=== PATIENT | female | born 1995 | race Caucasian/White ===

== ENCOUNTER 2016-10-10 12:12 | Emergency (ER) | payer OTHER ==
[~2016-10-10] VITALS: Ht 162.6 cm; Wt 55.7 kg
[2016-10-10 12:14] VITALS: TEMP 36.8; Ht 162.6 cm; Wt 55.7 kg
[2016-10-10] MEDS ORDERED: SODIUM CHLORIDE 0.9% 1000ML 1,000 ML IV SCH (13:14)
[2016-10-10 13:16] LABS: BASO ABS # 0.06 K/uL (0-0.2); COMPLETE YES; HEMATOCRIT 39.2 % (37-47); IG% 0.3 %; LYMPH % 30.6 %; LYMPH ABS # 1.92 K/uL (1.2-3.4); MEAN CORPUSCULAR HEMOGLOBIN 29.4 pg (25-34); MEAN CORPUSCULAR HGB CONC 34.2 g/dl (32-36); MEAN PLATELET VOLUME 9.7 fL (7.4-10.4); MONO % 8.5 %; NEUT % 55.6 %; PLATELET COUNT 206 K/uL (130-400); RED BLOOD COUNT 4.56 M/uL (4.2-5.4); WHITE BLOOD COUNT 6.27 K/uL (4.8-10.8)
[2016-10-10 13:42] LABS: ALT/SGPT 40 U/L (12-78); BLOOD UREA NITROGEN 13 mg/dl (7-18); BUN/CREATININE RATIO 16.9 (10-20); CALCIUM 9.1 mg/dl (8.5-10.1); CARBON DIOXIDE 26 mmol/L (21-32); CHLORIDE 107 mmol/L (98-107); CREATININE 0.77 mg/dl (0.60-1.20); GLUCOSE 79 mg/dl (70-99); POTASSIUM 3.8 mmol/L (3.5-5.1); SODIUM 140 mmol/L (136-145)
[2016-10-10 13:43] VITALS: O2SAT 97
[2016-10-10 13:45] LABS: URINE APPEARANCE CLOUDY (CLEAR); URINE BILIRUBIN NEG (NEG); URINE COLOR YELLOW; URINE EPITHELIAL CELL AUTO >30 /lpf (0-5); URINE NITRITE NEG (NEG); URINE SPECIFIC GRAVITY 1.026 (1.000-1.030); UROBILINOGEN NEG (NEG); ZZUR CULT IF INDIC CLEAN CATCH YES
[2016-10-10 13:46] LABS: ALB/GLOB RATIO 1.2 (0.9-2); ALKALINE PHOSPHATASE 76 U/L (45-117); AST/SGOT 18 U/L (15-37)
[2016-10-10 13:47] LABS: MANUAL MICROSCOPIC REQUIRED? NO; REVIEW REQ? NO
[2016-10-10 13:51] LABS: INR 1.1 (0.9-1.1); PROTHROMBIN TIME (PATIENT) 11.4 SECONDS (9.0-12.0)
--- NOTE | 2016-10-10 13:53 | EMERGENCY ROOM VISIT NOTE ---
History First contact with patient: 13:04 Chief Complaint: OTHER COMPLAINT Stated Complaint: L SIDE OF SMILE WEAK,FAMILY DOC SAID TO COME IN History of Present Illness The patient is a 21 year old female who presents to the Emergency Room via private vehicle with complaints of "left side a smile week, family doctor said to come in". The patient states that today she woke up around 10:30 AM, and the left side of her smile appear to be drooping. She states that she became concerned, called her family doctor who stated that she should go to the emergency department. She does have a history of seizure. She also has had an intermittent headache. She does note she has has stomach pain off and on for the past few weeks, but notes poor dieting and currently denies any abdominal pain. She denies any urinary symptoms, recent tick bites, fevers, chills, history of Lyme disease, speech troubles, extremity weakness, history of Alvarez's palsy, history of stroke, medications. Review of Systems A complete 10-point Review of Systems was discussed with the patient, with pertinent positives and negatives listed in the History of Present Illness. All remaining Review of Systems questions can be considered negative unless otherwise specified. Past Medical/Surgical History Seizure, wisdom teeth extraction, skin problems, asthma Family History Diabetes, high blood pressure, seizures Social History Smoking Status: Never Smoker Social History: Patient lives at home with parents. She denies tobacco and alcohol use. Current/Historical Medications No Active Prescriptions or Reported Meds Allergies Coded Allergies: No Known Allergies (Unverified , 10/10/16) Physical Exam Vital Signs Date Time Temp Pulse Resp B/P (MAP) Pulse Ox O2 Delivery O2 Flow Rate FiO2 10/10/16 17:08 98 16 109/63 98 10/10/16 16:14 53 16 99/55 100 Room Air 10/10/16 13:43 97 Room Air 10/10/16 13:23 78 18 99/55 96 10/10/16 12:14 36.8 54 18 118/62 100 Room Air Physical Exam VITAL SIGNS - Vital signs and nursing notes were reviewed. Patient is afebrile , normotensive, non-tachycardic and is saturating well on room air 100%. GENERAL -21-year-old female appearing her stated age who is in no acute distress. Communicates well with provider and answers questions appropriately. SKIN - Without rashes. Skin is unremarkable for acute process. HEAD - NC/AT. EYES - PERRL with EOMI bilaterally. Sclera anicteric. Palpebral conjunctiva pink and moist with no injection noted. EARS - No deformities of external structures noted on gross examination bilaterally. No pain elicited with palpation of the tragus bilaterally. External auditory canals without discharge or otorrhea. Tympanic membranes pearly valladares without retraction or bulging. No fluid or purulent material visualized behind the TM. Handle of malleus, umbo, cone of light, pars tensa/ flaccid all easily visualized. NOSE - Midline and without cyanosis. No epistaxis or purulent drainage noted. Septum midline without deviation or septal hematoma noted. MOUTH/OROPHARYNX - Without perioral cyanosis. Buccal mucosa pink and moist and without leukoplakia. Tongue midline with equal elevation of palate bilaterally. No tonsillar hypertrophy, erythema, or exudates noted. Fair dentition noted. When the patient smiles, the left upper lip is slightly drooping. There is normal cheek puffing, frowning, tongue protrusion. No other facial droop or deficit noted on examination. NECK - Neck with FROM. Supple to palpation. No lymphadenopathy noted. No nuchal rigidity. No meningismus. LUNGS - Chest wall symmetric without accessory muscle use, intercostals retractions, or central cyanosis. Normal vesicular breath sounds CTA B/L. No wheezes, rales, or rhonchi appreciated. CARDIAC - RRR with S1/S2. No murmur, rubs, or gallops appreciated. ABDOMEN - Abdominal contour without pulsations or visible masses. BS normoactive all four quadrants. No tenderness, palpable masses, hepatosplenomegaly, or ascites noted. EXTREMITIES - No clubbing or peripheral cyanosis. No pretibial edema present. She is neurovascularly intact in the extremity is. +5/5 strength noted in UE/ LE bilaterally. NEUROLOGIC - Cranial nerves II through XII grossly intact. Sensory intact to light touch throughout. Patellar reflexes +2/4. PSYCH - A&Ox3 and cooperates fully with examiner. Pt is very pleasant and interacts well with examiner. Medical Decision & Procedures ER Provider Diagnostic Interpretation: CT HEAD WITHOUT CONTRAST (CT) CLINICAL HISTORY: Stroke LEFT FACIAL WEAKNESS COMPARISON STUDY: No previous studies for comparison. TECHNIQUE: Axial CT of the brain is performed from the vertex to the skull base. IV contrast was not administered for this examination. CT DOSE: 537.48 mGy.cm FINDINGS: No intra or extra-axial mass lesions are visualized. There is no CT evidence of acute cortical infarction. There is no evidence of midline shift. There is no acute hemorrhage. No calvarial fractures are visualized. There is no evidence of pathologic ventricular dilatation. There is mild ethmoid sinus mucosal thickening. IMPRESSION: Ethmoid sinus mucosal thickening. Otherwise normal noncontrast head CT. Electronically signed by: Sebastián Baeza M.D. 10/10/2016 2:12 PM Dictated Date/Time: 10/10/2016 2:11 PM MRI OF THE BRAIN COMBO CLINICAL HISTORY: Headache. Left-sided facial droop. Reported history of seizure. COMPARISON STUDY: CT of the brain dated 10/10/2016. TECHNIQUE: MRI of the brain was performed utilizing various T1 and T2-weighted sequences in the axial, sagittal, and coronal planes. Contrast-enhanced sequences were acquired following the administration of 5.5 cc of Gadavist. The examination is performed using the seizure protocol. FINDINGS: Brain parenchyma: The brain parenchyma is normal in appearance. There is no hemorrhage or mass effect. There is no restricted diffusion to suggest acute ischemia. No enhancing mass lesion is identified on the postcontrast images. Valladares-white matter differentiation is preserved. No extra-axial fluid collection is seen. The cerebellar tonsils are normal in configuration. The hippocampi are normal and symmetric. Ventricles, sulci, and cisterns: Normal in configuration. Pituitary and sella: Unremarkable. Intracranial vasculature: Normal flow voids are maintained at the skull base. Orbits: The bony orbits are grossly intact. Orbital contents are normal in appearance. Sinuses and mastoids: Mild to moderate mucosal thickening is seen in the left maxillary antrum. Trace mucosal thickening is seen in the right maxillary antrum and the ethmoid sinuses. The mastoid air cells are clear. Calvarium: Unremarkable. Cervical cord: Partially visualized cervical spinal cord is normal in morphology and signal intensity. IMPRESSION: No acute intracranial abnormality. Electronically signed by: Shaheen Rios M.D. 10/10/2016 4:22 PM Dictated Date/Time: 10/10/2016 4:18 PM Laboratory Results 10/10/16 12:55 Red Blood Count 4.56, Mean Corpuscular Volume 86.0, Mean Corpuscular Hemoglobin 29.4, Mean Corpuscular Hemoglobin Concent 34.2, Mean Platelet Volume 9.7, Neutrophils (%) (Auto) 55.6, Lymphocytes (%) (Auto) 30.6, Monocytes (%) (Auto) 8.5, Eosinophils (%) (Auto) 4.0, Basophils (%) (Auto) 1.0, Neutrophils # (Auto) 3.49, Lymphocytes # (Auto) 1.92, Monocytes # (Auto) 0.53, Eosinophils # (Auto) 0.25, Basophils # (Auto) 0.06 10/10/16 12:55 Test 10/10/16 12:50 10/10/16 12:55 10/10/16 13:14 10/10/16 13:28 Prothrombin Time 11.4 SECONDS (9.0-12.0) Prothromb Time International Ratio 1.1 (0.9-1.1) Activated Partial Thromboplast Time 26.6 SECONDS (21.0-31.0) Partial Thromboplastin Ratio 1.0 White Blood Count 6.27 K/uL (4.8-10.8) Red Blood Count 4.56 M/uL (4.2-5.4) Hemoglobin 13.4 g/dL (12.0-16.0) Hematocrit 39.2 % (37-47) Mean Corpuscular Volume 86.0 fL (80-100) Mean Corpuscular Hemoglobin 29.4 pg (25-34) Mean Corpuscular Hemoglobin Concent 34.2 g/dl (32-36) Platelet Count 206 K/uL (130-400) Mean Platelet Volume 9.7 fL (7.4-10.4) Neutrophils (%) (Auto) 55.6 % Lymphocytes (%) (Auto) 30.6 % Monocytes (%) (Auto) 8.5 % Eosinophils (%) (Auto) 4.0 % Basophils (%) (Auto) 1.0 % Neutrophils # (Auto) 3.49 K/uL (1.4-6.5) Lymphocytes # (Auto) 1.92 K/uL (1.2-3.4) Monocytes # (Auto) 0.53 K/uL (0.11-0.59) Eosinophils # (Auto) 0.25 K/uL (0-0.5) Basophils # (Auto) 0.06 K/uL (0-0.2) RDW Standard Deviation 37.8 fL (36.4-46.3) RDW Coefficient of Variation 12.2 % (11.5-14.5) Immature Granulocyte % (Auto) 0.3 % Immature Granulocyte # (Auto) 0.02 K/uL (0.00-0.02) Anion Gap 7.0 mmol/L (3-11) Est Creatinine Clear Calc Drug Dose 99.0 ml/min Estimated GFR () 127.0 Estimated GFR (Non- 109.6 BUN/Creatinine Ratio 16.9 (10-20) Calcium Level 9.1 mg/dl (8.5-10.1) Total Bilirubin 0.6 mg/dl (0.2-1) Aspartate Amino Transf (AST/SGOT) 18 U/L (15-37) Alanine Aminotransferase (ALT/SGPT) 40 U/L (12-78) Alkaline Phosphatase 76 U/L (45-117) Total Creatine Kinase 97 U/L (26-192) Creatine Kinase MB < 0.5 ng/ml (0.5-3.6) Troponin I < 0.015 ng/ml (0-0.045) Total Protein 7.1 gm/dl (6.4-8.2) Albumin 3.9 gm/dl (3.4-5.0) Globulin 3.2 gm/dl (2.5-4.0) Albumin/Globulin Ratio 1.2 (0.9-2) Lyme Disease IgG Antibody NEG (NEG) Lyme Disease IgM Antibody NEG (NEG) Creatine Kinase MB Ratio (0-3.0) Urine Color YELLOW Urine Appearance CLOUDY (CLEAR) Urine pH 7.0 (4.5-7.5) Urine Specific Orient 1.026 (1.000-1.030) Urine Protein NEG (NEG) Urine Glucose (UA) NEG (NEG) Urine Ketones NEG (NEG) Urine Occult Blood NEG (NEG) Urine Nitrite NEG (NEG) Urine Bilirubin NEG (NEG) Urine Urobilinogen NEG (NEG) Urine Leukocyte Esterase TRACE (NEG) Urine WBC (Auto) 1-5 /hpf (0-5) Urine RBC (Auto) 0-4 /hpf (0-4) Urine Hyaline Casts (Auto) 1-5 /lpf (0-5) Urine Epithelial Cells (Auto) >30 /lpf (0-5) Urine Bacteria (Auto) 1+ (NEG) Urine Test NEG (NEG) Urine Opiates Screen NEG (NEG) Urine Methadone, Qualitative NEG (NEG) Urine Barbiturates NEG (NEG) Urine Phencyclidine (PCP) Level NEG (NEG) Ur Amphetamine/Methamphetamine NEG (NEG) MDMA (Ecstasy) Screen NEG (NEG) Urine Benzodiazepines Screen NEG (NEG) Urine Cocaine Metabolite NEG (NEG) Urine Marijuana (THC) NEG (NEG) Medical Decision Patient was seen and evaluated as above. After obtaining a thorough history and physical examination IV access was initiated and the above workup was performed. Patient presents to us today with only one symptom of left superior lip drooping. Workup was essentially unremarkable. EKG revealed sinus bradycardia rate of 45 bpm, no ectopy or ischemic change. CBC reveals no leukocytosis or anemia. Coags unremarkable. CMP unremarkable for acute process. Urine unremarkable and believe to be contaminated sample. Urine test negative. Urine drug screen negative. Lyme test negative. CT head negative for acute process other than mucosal thickening. MRI brain combo negative except for mucosal thickening. Case was thoroughly discussed with my attending. Patient at this time is stable. Case was discussed with Dr. Quiroz, the on-call neurologist at 4:46 PM. It was identified that the patient at this time is unlikely to have any significant abnormality, and a follow-up with him in his outpatient office. The patient was educated upon today's findings, educated upon worrisome symptoms which to return, had questions prior to discharge, and was discharged home in good condition. I do not suspect any acute process that is emergent at this time. I do not suspect CVA. In the evaluation and treatment this patient following differential diagnoses were entertained: CVA, TIA, Alvarez's palsy, among others. Impression Primary Impression: left lip droop Departure Information Dispostion Home / Self-Care Condition GOOD Prescriptions No Active Prescriptions or Reported Meds Referrals No Doctor, Assigned (PCP) Timur Quiroz M.D. Patient Instructions My [facility] Additional Instructions You were seen in the emergency department for new onset left lip drooping. Lab work, CT scan of her head and MRI of your head have help rule out emergent causes. There is sinus thickening of which you should follow-up with your family doctor for. I did discuss your case with a neurologist, who recommends follow-up in the outpatient setting. The numbers listed above of which you are to call first thing Thursday morning. You were certainly invited to return to the emergency department if you develop any new/concerning symptoms. Thank you for your time.
--- NOTE | 2016-10-10 14:13 | DIAGNOSTIC IMAGING REPORT ---
CT HEAD WITHOUT CONTRAST (CT) CLINICAL HISTORY: Stroke LEFT FACIAL WEAKNESS COMPARISON STUDY: No previous studies for comparison. TECHNIQUE: Axial CT of the brain is performed from the vertex to the skull base. IV contrast was not administered for this examination. CT DOSE: 537.48 mGy.cm FINDINGS: No intra or extra-axial mass lesions are visualized. There is no CT evidence of acute cortical infarction. There is no evidence of midline shift. There is no acute hemorrhage. No calvarial fractures are visualized. There is no evidence of pathologic ventricular dilatation. There is mild ethmoid sinus mucosal thickening. IMPRESSION: Ethmoid sinus mucosal thickening. Otherwise normal noncontrast head CT. Electronically signed by: Sebastián Baeza M.D. 10/10/2016 2:12 PM Dictated Date/Time: 10/10/2016 2:11 PM
[2016-10-10 14:24] LABS: LYME DISEASE AB IGG NEG (NEG); LYME DISEASE AB IGM NEG (NEG)
[2016-10-10 14:36] LABS: BENZODIAZEPINE, URINE NEG (NEG); COCAINE,URINE NEG (NEG); PHENCYCLIDINE, URINE NEG (NEG)
--- NOTE | 2016-10-10 16:23 | DIAGNOSTIC IMAGING REPORT ---
MRI OF THE BRAIN COMBO CLINICAL HISTORY: Headache. Left-sided facial droop. Reported history of seizure. COMPARISON STUDY: CT of the brain dated 10/10/2016. TECHNIQUE: MRI of the brain was performed utilizing various T1 and T2-weighted sequences in the axial, sagittal, and coronal planes. Contrast-enhanced sequences were acquired following the administration of 5.5 cc of Gadavist. The examination is performed using the seizure protocol. FINDINGS: Brain parenchyma: The brain parenchyma is normal in appearance. There is no hemorrhage or mass effect. There is no restricted diffusion to suggest acute ischemia. No enhancing mass lesion is identified on the postcontrast images. Valladares-white matter differentiation is preserved. No extra-axial fluid collection is seen. The cerebellar tonsils are normal in configuration. The hippocampi are normal and symmetric. Ventricles, sulci, and cisterns: Normal in configuration. Pituitary and sella: Unremarkable. Intracranial vasculature: Normal flow voids are maintained at the skull base. Orbits: The bony orbits are grossly intact. Orbital contents are normal in appearance. Sinuses and mastoids: Mild to moderate mucosal thickening is seen in the left maxillary antrum. Trace mucosal thickening is seen in the right maxillary antrum and the ethmoid sinuses. The mastoid air cells are clear. Calvarium: Unremarkable. Cervical cord: Partially visualized cervical spinal cord is normal in morphology and signal intensity. IMPRESSION: No acute intracranial abnormality. Electronically signed by: Shaheen Rios M.D. 10/10/2016 4:22 PM Dictated Date/Time: 10/10/2016 4:18 PM
[2016-10-10] MEDS ORDERED: GADAVIST IV PRN (16:30)
[2016-10-10 17:08] VITALS: BP 109/63; PULSE 98; O2SAT 98
== END 2016-10-10 17:09 | disposition home or self-care (01) ==
LOC: C.EDB 12:14
DX: R29.810 Facial weakness (principal); R51 Headache; J01.00 Acute maxillary sinusitis, unspecified; J01.20 Acute ethmoidal sinusitis, unspecified